=== PATIENT | male | born 1970 | race Caucasian/White ===

== ENCOUNTER → 2016-08-11 | Outpatient (CLI) | payer BC ==
--- NOTE | 2016-08-11 18:45 | DI ---
History: Chronic right shoulder pain, activity related. Evaluate for focal abnormality. Procedure: Study performed on 1.5 Narda magnet and axial and nonorthogonal sagittal and coronal proje ction with a variety imaging sequences Prior study: None. Findings: The subscapularis muscle and tendon are intact. Recurrent glenoid labrum, there is some denise iable increased signal intensity anteriorly along the inferior margin. Review imaged 16/30. No gross displacement is identified on this noncontrast enhanced study. Biceps tendon is intact and properly positioned. Slight concavity and cortical irregularity of the humeral head observed on axial image 15/30 which co uld indicate prior anterior dislocation. Moderate degenerative change of the right acromioclavicular junction with some callus formation and i ncreased signal intensity in the joint space itself. There is some proliferation mostly superiorly. E ncroachment upon the supraspinatus muscle is minimal. Laterally, there is approximation of the acromi on relative to the humeral head, 8 mm cyst on image 12/24, sufficient to cause impingement condition. Indeed, the signal intensity in the supraspinatus is variable and image 14/24 shows increased signal which extends extend essentially through the entire tendon from bottom to top, undersurface tear pro bably extending to the subacromial bursa. Within the humeral head itself, there is some increased sig nal intensity suggesting prior direct trauma. It measures about 5 mm in diameter and is round. It is well medial of the greater tuberosity which overall appears within normal limits. The infraspinatus is posterior to the area of impingement and appears intact. Impression: High likelihood of a small full-thickness rotator cuff tear as described in detail above with out ret raction. Tendinosis and variable increased signal intensity observed throughout the supraspinatus ten don itself. Impingment condition likely based upon approximation of the acromion to the apex of the h umeral head. Slightly posteriorly oriented cortical defect which may be associated with direct prior trauma to the humerus. Separate posterior concavity of the humeral head inferiorly which may be associated with prior disloc ation. Variable signal intensity within the glenoid labrum anteriorly. No gross displacement. Additio nal detail is unavailable without intra-articular contrast material Fairly advanced degenerative change of the acromioclavicular junction with synovial proliferation mos tly directed in the superior direction without impingement upon the supraspinatus muscle itself.
== END ==
LOC: MRI 14:42
PROVIDERS: ATTEND Family Medicine
DX: M25.511 Pain in right shoulder (principal); M65.811 Other synovitis and tenosynovitis, right shoulder
CPT/HCPCS: 73221

== ENCOUNTER → 2017-03-05 | Outpatient (CLI) | payer BC ==
--- NOTE | 2017-03-05 10:10 | DI ---
XR CXR 2VW PA/LAT,03/05/2017 9:10 AM: Clinical History: Chest pain Previous Exam: None at this facility. Findings: PA and lateral views of the chest are obtained, and demonstrate clear lungs. The cardiomediastinum an d bony thorax are unremarkable. Impression: No acute disease.
== END ==
LOC: MOB RAD 09:12
PROVIDERS: ATTEND Family Medicine
DX: R07.9 Chest pain, unspecified (principal); Z82.49 Family history of ischemic heart disease and other diseases of the circulatory system
CPT/HCPCS: 71020

== ENCOUNTER → 2017-03-15 | Outpatient (CLI) | payer BC ==
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
== END ==
LOC: EKG 08:07
PROVIDERS: ATTEND Family Medicine
DX: R07.9 Chest pain, unspecified (principal); Z82.49 Family history of ischemic heart disease and other diseases of the circulatory system
CPT/HCPCS: 93016; 93017; 93018